=== PATIENT | male | born 1960 | race Caucasian/White ===

== ENCOUNTER 2025-05-31 08:27 | Day surgery (SDC) | payer MEDICARE, OTHER ==
[~2025-05-31] VITALS: Ht 171.4 cm; Wt 90.9 kg
[2025-05-31] VITALS (9 sets, daily range): BP systolic 93–157; BP diastolic 65–74; PULSE 60–70
[~2025-05-31 08:27] MED LIST: ASPI81TA39 PO; ASPIRIN 81 MG CHEWABLE TABLET ONE; ATOR20TA65 PO; CHLO25TA3 PO; LISI-663 PO; METO-408 PO; NITR0.4T50 SL; SODIUM CHLORIDE 0.9% 1,000 ML ONE
[2025-05-31 09:14] LABS: PLATELET COUNT (AUTO) 185 K/uL (150-450); RED BLOOD CELL COUNT(AUTO) 4.23 MIL/uL (4.50-5.90); RED CELL DISTRIBUTION WIDTH 16.3 % (11.5-14.5); WHITE BLOOD COUNT (AUTO) 7.5 K/uL (4.5-11.0)
[2025-05-31 09:21] LABS: CALCIUM, TOTAL 8.9 mg/dL (8.8-10.5); CREATININE 0.96 mg/dL (0.60-1.30); GLOMERULAR FILTR. RATE CALC > 60 mL/min (>60); GLUCOSE,RANDOM 94 mg/dL (70-110); SODIUM SERUM 136 mmol/L (136-145); UREA NITROGEN, BLOOD 18 mg/dL (7-18)
[2025-05-31 09:28] LABS: CHOL/HDL RATIO 3.6 (4.2-7.3); LDL CHOL (CALC.) 68.0 mg/dL (0-130)
[2025-05-31] MEDS: SODIUM CHLORIDE 0.9% 1,000 ML IV ONE (10:31)
[2025-05-31] MEDS ORDERED: IOHEXOL 300 MG/ML 100 ML VIAL ONE (11:06)
[2025-05-31] MEDS ORDERED: SODIUM BICARBONATE 50 MEQ/50 ML VIAL ONE (11:06)
[2025-05-31] MEDS ORDERED: LIDOCAINE/PF 1% 30 ML VIAL ONE (11:06)
[2025-05-31] MEDS ORDERED: HEPARIN SODIUM 1000 UNITS/NS 1,000 ML ONE (11:06)
[2025-05-31] MEDS ORDERED: ASPIRIN 81 MG CHEWABLE TABLET PO ONE (11:30)
[2025-05-31] MEDS ORDERED: MIDAZOLAM HCL 2 MG/2 ML VIAL ONE (11:46)
[2025-05-31] MEDS ORDERED: FentaNYL CITRATE PF 100 MCG/2 ML VIAL ONE (11:46)
[2025-05-31] MEDS: HEPARIN SODIUM,PORCINE 1,000 UNITS/ML 10 ML VIAL IVP ONE (13:17)
[2025-05-31] MEDS: IOHEXOL 300 MG/ML 100 ML VIAL ICOR ONE (13:17)
[2025-05-31] MEDS: MIDAZOLAM HCL 2 MG/2 ML VIAL IVP ONE (13:18)
[2025-05-31] MEDS: LIDOCAINE 1% 30 ML/SOD BICARB 8.4% 4 ML SQ ONE (13:18)
[2025-05-31] MEDS: FentaNYL CITRATE PF 100 MCG/2 ML VIAL IVP ONE ×2 (13:18→13:22)
[2025-05-31] MEDS: IOHEXOL 300 MG/ML 100 ML VIAL IARTER ONE (13:23)
[2025-05-31] MEDS: NITROGLYCERIN/D5W 50 MG/250 ML IV BOTTLE IARTER ONE (13:23)
[2025-05-31] MEDS: HEPARIN SODIUM 1000 UNITS/NS 1,000 ML IARTER ONE (13:24)
== END 2025-05-31 16:39 | disposition home or self-care (01) ==
LOC: CATHLAB 08:27
PROVIDERS: ATTEND Internal Medicine Interventional Cardiology
DX: R07.9 Chest pain, unspecified (principal); I25.119 Atherosclerotic heart disease of native coronary artery with unspecified angina pectoris; R94.31 Abnormal electrocardiogram [ECG] [EKG]; I10 Essential (primary) hypertension; E66.9 Obesity, unspecified; E78.5 Hyperlipidemia, unspecified; Z79.82 Long term (current) use of aspirin; Z79.899 Other long term (current) drug therapy; Z98.890 Other specified postprocedural states; Z68.30 Body mass index [BMI] 30.0-30.9, adult
CPT/HCPCS: 93458; 80061; 80048; 83036; 85025; 85610; 99152; 99153; 85730; 36415; 93005; C1760; J3010; J1644; J3490 ×2; J2250; J7030; Q9967